=== PATIENT | female | born 1980 | race Caucasian/White ===

== ENCOUNTER 2017-04-10 12:36 | Emergency (ER) | payer OTHER ==
[~2017-04-10] VITALS: Ht 185.4 cm; Wt 68.0 kg
--- NOTE | 2017-04-10 12:53 | NUR ---
PATIENT WAS SEEN AND EXAMINED BY DR CUMMINGS IN ROOM 01B. PATIENT A & O X4.
[2017-04-10] MEDS ORDERED: ONDANSETRON ODT 4 MG TAB.RAPDIS SL ONE (13:00)
[2017-04-10] MEDS ORDERED: ONDANSETRON ODT 4 MG TAB.RAPDIS ONE (13:23)
--- NOTE | 2017-04-10 14:30 | NUR ---
mse completed, pt denied nausea, pt got dressed and ambulated w/o diff with friend. pt took all belongings.
[2017-04-10 14:33] VITALS: BP 128/82
== END 2017-04-10 14:33 | disposition home or self-care (01) ==
LOC: ER 12:38
DX: R55 Syncope and collapse (principal); Z88.0 Allergy status to penicillin; Z88.1 Allergy status to other antibiotic agents; Z88.2 Allergy status to sulfonamides; E78.5 Hyperlipidemia, unspecified
CPT/HCPCS: 82962; 93005; 99283; A4663; Q0162